=== PATIENT | female | born 2000 ===

== ENCOUNTER 2022-07-12 04:27 | Emergency (ER) | payer OTHER ==
[~2022-07-12] VITALS: Ht 160 cm; Wt 122.5 kg
[2022-07-12] MEDS ORDERED: SPRINTEC 28 DA1 EACH (06:09)
[2022-07-12] MEDS ORDERED: PEPCID AC20 MG PO (10:28)
[2022-07-12] MEDS ORDERED: LEVSIN/SL0.125 MG SL (10:28)
== END 2022-07-12 10:34 | disposition home or self-care (01) ==
LOC: ER 04:27
DX: N92.6 Irregular menstruation, unspecified (principal); R10.13 Epigastric pain; R16.0 Hepatomegaly, not elsewhere classified; Z91.048 Other nonmedicinal substance allergy status